=== PATIENT | male | born 1960 | race Caucasian/White ===

== ENCOUNTER 2021-06-15 23:24 | Observation (INO) | payer OTHER ==
[~2021-06-15] VITALS: Ht 172.7 cm; Wt 83.9 kg
[2021-06-16 00:18] LABS: HEMOGLOBIN 14.8 gm/dl (14.0-17.5); RED BLOOD COUNT 4.56 M/UL (4.20-5.50); WHITE BLOOD COUNT 9.9 K/UL (4.5-11.0)
[2021-06-16 00:46] LABS: BUN/CREATININE RATIO 18 (0-10)
[2021-06-16] MEDS ORDERED: HYDROCODON-ACE1 EAC6 PO (11:00)
[2021-06-16] MEDS ORDERED: HYDRALAZINE HCL50 MG PO (11:01)
[2021-06-16] MEDS ORDERED: CYCLOBENZAPRINE10 MG PO (11:01)
[2021-06-16] MEDS ORDERED: OMEPRAZOLE20 MG PO (11:01)
[2021-06-16] MEDS ORDERED: VENLAFAXINE H37.5 M1 PO (11:03)
[2021-06-16] MEDS ORDERED: TENORMIN 50 MG50 MG PO (11:03)
[2021-06-16] MEDS ORDERED: GABAPENTIN300 MG PO (11:04)
[2021-06-16] MEDS ORDERED: ZINC50 M1 PO (11:05)
[2021-06-16] MEDS ORDERED: COMPLETE SENIO1 EACH PO (11:06)
[2021-06-16] MEDS ORDERED: VITAMIN C500 M4 PO (11:06)
[2021-06-18 03:30] LABS: HEMOGLOBIN 14.9 gm/dl (14.0-17.5); RED BLOOD COUNT 4.65 M/UL (4.20-5.50); WHITE BLOOD COUNT 9.3 K/UL (4.5-11.0)
[2021-06-18 04:02] LABS: BUN/CREATININE RATIO 14 (0-10)
[2021-06-18] MEDS ORDERED: ASPIRIN EC81 MG PO (09:01)
[2021-06-18] MEDS ORDERED: ZETIA10 MG PO (09:01)
[2021-06-18] MEDS ORDERED: LISINOPRIL10 MG PO (09:01)
[2021-06-18] MEDS ORDERED: ISOSORBIDE MONO30 MG PO (09:01)
[2021-06-18] MEDS ORDERED: QUESTRAN LIGHT 44 GM PO (09:01)
[2021-06-18] MEDS ORDERED: BRILINTA 90 MG90 MG PO (09:01)
== END 2021-06-18 11:54 | disposition home or self-care (01) ==
LOC: ER1 23:24 → PROG CARE 06-16 05:47 → CDU 06-16 05:47 → MED SURG 4 06-16 19:09 → PROG CARE 06-17 15:46
PROVIDERS: Family Medicine; Internal Medicine; Internal Medicine Cardiovascular Disease; ADMIT Internal Medicine
PROC: 027034Z Dilation of Coronary Artery, One Artery with Drug-eluting Intraluminal Device, Percutaneous Approach (ICD-10-PCS; principal; 2021-06-17)
DX: I25.110 Atherosclerotic heart disease of native coronary artery with unstable angina pectoris (principal); I10 Essential (primary) hypertension; E78.5 Hyperlipidemia, unspecified; I51.89 Other ill-defined heart diseases; F17.210 Nicotine dependence, cigarettes, uncomplicated; T46.6X5A Adverse effect of antihyperlipidemic and antiarteriosclerotic drugs, initial encounter; Z88.0 Allergy status to penicillin; Z20.822 Contact with and (suspected) exposure to COVID-19
CPT/HCPCS: ECHO; 36415; 71045; 78452; 80048; 80053; 80061; 82550; 82553; 83036; 83874; 84484; 85025; 85347; 85379; 93005; 93017; 93306; 93571; 99152; 99153; 99285; A9502; C1725; C1769; C1874; C1887; C1894; C9600; G0378; J1644; J1650; J2250; J2270; J2405; J3010; J3246; J7040; Q9967; U0002